=== PATIENT | female | born 1980 | race African-American/Black ===

== ENCOUNTER 2016-06-13 17:39 | Emergency (ER) | payer OTHER ==
[~2016-06-13 17:39] MED LIST: ANEXSIA 5/325 M1 TA1 PO; BIRTH CONTROL; BIRTH CONTROL PILL PO; DICLOFENAC PO; FLEXERIL10 MG PO; IMITREX50 MG PO; ROBAXIN PO; VOLTAREN75 MG PO; ZOFRAN ODT4 MG PO
[2016-06-13 18:20] LABS: URINE SOURCE CLEAN CATCH
[2016-06-13 18:23] LABS: URINE APPEARANCE CLEAR; URINE BILIRUBIN NEG (NEG); URINE BLOOD TRACE-INTACT (NEG); URINE COLOR YELLOW; URINE GLUCOSE NEG (NORM); URINE KETONE NEG (NEG); URINE LEUKOCYTE ESTERASE NEG (NEG); URINE NITRATE NEG (NEG); URINE PH 6.5 (5-8); URINE PROTEIN NEG (NEG); URINE SPECIFIC GRAVITY <=1.005 (1.003-1.035); URINE UROBILINOGEN 0.2 MG/DL (NORM)
[2016-06-13 18:24] LABS: MICRO INDICATED? YES
[2016-06-13 18:30] LABS: CULTURE INDICATED? NO; URINE BACTERIA NEG (NEG); URINE SQUAMOUS EPITHELIAL CELL OCCAS /[HPF]; URINE WBC NEG /[HPF] (0-5)
== END 2016-06-13 18:44 | disposition home or self-care (01) ==
LOC: SED 17:39
PROVIDERS: Emergency Medicine
DX: S39.011A Strain of muscle, fascia and tendon of abdomen, initial encounter (principal); G43.909 Migraine, unspecified, not intractable, without status migrainosus; Z98.890 Other specified postprocedural states; X58.XXXA Exposure to other specified factors, initial encounter; Y92.9 Unspecified place or not applicable
CPT/HCPCS: 81003; 84703; 96372; 96374; 96375; 99283